=== PATIENT | male | born 1965 | race Hispanic/Latino ===

== ENCOUNTER 2019-10-23 22:09 | Emergency (ER) | payer OTHER ==
--- NOTE | 2019-10-23 22:55 | ER ---
Nurse's Notes [facility] Name: Fernandez Rich Age: 54 yrs Sex: Male : 1965 Arrival Date: 10/23/2019 Time: 22:15 Bed 23 Private MD: Diagnosis: Herpes genetalia Presentation: 10/23 22:23 Presenting complaint: Patient states: i have genital pain for a week now, i was seen mg2 twice by different drs and the last one prescribed me with fluconazole i took one dose of it and my pain is unbearable. Transition of care: patient was not received from another setting of care. Onset of symptoms was September 2019. Risk Assessment: Do you want to hurt yourself or someone else? Patient reports no desire to harm self or others. Initial Sepsis Screen: Does the patient meet any 2 criteria? No. Patient's initial sepsis screen is negative. Does the patient have a suspected source of infection? No. Patient's initial sepsis screen is negative. Care prior to arrival: None. 22:23 Method Of Arrival: Ambulatory mg2 22:23 Acuity: JASMIN 4 mg2 Historical: - Allergies: 22:27 No Known Allergies; mg2 - Home Meds: 22:27 None [Active]; mg2 - PMHx: 22:27 Hyperlipidemia; mg2 - PSHx: 22:27 None; mg2 - Immunization history:: Flu vaccine is up to date. - Coronavirus screen:: The patient has NOT traveled to [place], [place], or [place] in the past 14 days. Proceed with normal triage process as indicated. The patient has NOT had contact with known/suspected case of Coronavirus? Proceed with normal triage procedures. - Social history:: Smoking status: Patient denies any tobacco usage or history of. Patient/guardian denies using alcohol, street drugs, IV drugs. - Ebola Screening: : No symptoms or risks identified at this time. Screenin:32 Abuse screen: Denies threats or abuse. Denies injuries from another. Nutritional mg2 screening: No deficits noted. Tuberculosis screening: No symptoms or risk factors identified. Fall Risk None identified. Assessment: 22:32 General: Appears in no apparent distress. comfortable, Behavior is calm, cooperative. mg2 Pain: Complains of pain in genital. Neuro: Level of Consciousness is awake, alert, obeys commands, Oriented to person, place, time, situation. Cardiovascular: Capillary refill < 3 seconds Patient's skin is warm and dry. Respiratory: Airway is patent. GI: No signs and/or symptoms were reported involving the gastrointestinal system. : Reports pain genitalia. EENT: No signs and/or symptoms were reported regarding the EENT system. Derm: Skin is intact, is healthy with good turgor, Skin is pink, warm \T\ dry. normal. Musculoskeletal: Circulation, motion, and sensation intact. Capillary refill < 3 seconds. Vital Signs: 22:19 BP 146 / 92; Pulse 57; Resp 16; Temp 97.8(O); Pulse Ox 98% ; lt1 22:34 Weight 79.83 kg; Height 5 ft. 10 in. (177.80 cm); mg2 22:34 Body Mass Index 25.25 (79.83 kg, 177.80 cm) mg2 ED Course: 22:15 Patient arrived in ED. es 22:16 Nestor Partida MD is Attending Physician. lance 22:22 Harpreet Moreira, ASHLIE is Primary Nurse. mg2 22:25 Triage completed. mg2 22:25 Arm band placed on. mg2 22:33 No provider procedures requiring assistance completed. Patient did not have IV access mg2 during this emergency room visit. 22:34 Patient has correct armband on for positive identification. Placed in gown. Pulse ox mg2 on. NIBP on. Door closed. Warm blanket given. Administered Medications: 22:56 Drug: Tylenol #3 (300 mg-30 mg) 1 tablet Route: PO; mg2 22:57 Follow up: Response: No adverse reaction; Medication administered at discharge. mg2 22:56 Drug: Acyclovir 800 mg Route: PO; mg2 22:57 Follow up: Response: No adverse reaction; Medication administered at discharge. mg2 Outcome: 22:54 Discharge ordered by . pkvesta 23:08 Discharged to home ambulatory, with family. mg2 23:08 Condition: stable 23:08 Discharge instructions given to patient, family, Instructed on discharge instructions, follow up and referral plans. medication usage, Demonstrated understanding of instructions, follow-up care, medications, Prescriptions given X 2. 23:09 Patient left the ED. mg2 Signatures: Nestor Partida MD MD pkLizz Issa Harpreet Moreira RN RN mg2 [place] [id number]
[2019-10-23] MEDS ORDERED: ACYCLOVIR 400 MG TABLET ONE (22:56)
--- NOTE | 2019-10-23 22:56 | EDPHYS ---
Physician Documentation [facility] Name: Fernandez Rich Age: 54 yrs Sex: Male : 1965 Arrival Date: 10/23/2019 Time: 22:15 Bed 23 Private MD: ED Physician Nestor Partida HPI: 10/23 22:48 This 54 yrs old Male presents to ER via Ambulatory with complaints of Groin pkl Pain. 22:48 The patient presents with Blister-like lesions and ulcers on prepuce. Onset: The pkl symptoms/episode began/occurred 3 day(s) ago. Historical: - Allergies: 22:27 No Known Allergies; mg2 - Home Meds: 22:27 None [Active]; mg2 - PMHx: 22:27 Hyperlipidemia; mg2 - PSHx: 22:27 None; mg2 - Immunization history:: Flu vaccine is up to date. - Coronavirus screen:: The patient has NOT traveled to [place], [place], or [place] in the past 14 days. Proceed with normal triage process as indicated. The patient has NOT had contact with known/suspected case of Coronavirus? Proceed with normal triage procedures. - Social history:: Smoking status: Patient denies any tobacco usage or history of. Patient/guardian denies using alcohol, street drugs, IV drugs. - Ebola Screening: : No symptoms or risks identified at this time. ROS: 22:48 Eyes: Negative for injury, pain, redness, and discharge, ENT: Negative for injury, pkl pain, and discharge, Neck: Negative for injury, pain, and swelling, Cardiovascular: Negative for chest pain, palpitations, and edema, Respiratory: Negative for shortness of breath, cough, wheezing, and pleuritic chest pain, Abdomen/GI: Negative for abdominal pain, nausea, vomiting, diarrhea, and constipation, Back: Negative for injury and pain. 22:48 : Positive for Blister-like lesions and ulcers on prepuce. 22:48 MS/extremity: Negative for acute changes. 22:48 Neuro: Negative for altered mental status. Exam: 22:48 Head/Face: Normocephalic, atraumatic. Eyes: Pupils equal round and reactive to light, pkl extra-ocular motions intact. Lids and lashes normal. Conjunctiva and sclera are non-icteric and not injected. Cornea within normal limits. Periorbital areas with no swelling, redness, or edema. ENT: Nares patent. No nasal discharge, no septal abnormalities noted. Tympanic membranes are normal and external auditory canals are clear. Oropharynx with no redness, swelling, or masses, exudates, or evidence of obstruction, uvula midline. Mucous membranes moist. Neck: Trachea midline, no thyromegaly or masses palpated, and no cervical lymphadenopathy. Supple, full range of motion without nuchal rigidity, or vertebral point tenderness. No Meningismus. Chest/axilla: Normal chest wall appearance and motion. Nontender with no deformity. No lesions are appreciated. Cardiovascular: Regular rate and rhythm with a normal S1 and S2. No gallops, murmurs, or rubs. Normal PMI, no JVD. No pulse deficits. Respiratory: Lungs have equal breath sounds bilaterally, clear to auscultation and percussion. No rales, rhonchi or wheezes noted. No increased work of breathing, no retractions or nasal flaring. Abdomen/GI: Soft, non-tender, with normal bowel sounds. No distension or tympany. No guarding or rebound. No evidence of tenderness throughout. Back: No spinal tenderness. No costovertebral tenderness. Full range of motion. 22:48 : Male external genitalia: blister-like lesions and ulcers on prepuce. 22:48 Musculoskeletal/extremity: Exam is negative for acute changes. 22:48 Neuro: Orientation: is normal, Mentation: is normal, Cranial nerves: grossly normal, Motor: is normal. Vital Signs: 22:19 BP 146 / 92; Pulse 57; Resp 16; Temp 97.8(O); Pulse Ox 98% ; lt1 22:34 Weight 79.83 kg; Height 5 ft. 10 in. (177.80 cm); mg2 22:34 Body Mass Index 25.25 (79.83 kg, 177.80 cm) mg2 MDM: 22:16 Patient medically screened. pkl 22:54 Data reviewed: vital signs, nurses notes. pkl Administered Medications: 22:56 Drug: Tylenol #3 (300 mg-30 mg) 1 tablet Route: PO; mg2 22:57 Follow up: Response: No adverse reaction; Medication administered at discharge. mg2 22:56 Drug: Acyclovir 800 mg Route: PO; mg2 22:57 Follow up: Response: No adverse reaction; Medication administered at discharge. mg2 Disposition: 10/23/19 22:54 Discharged to Home. Impression: Herpes genetalia. - Condition is Stable. - Prescriptions for Tylenol- Codeine #3 300-30 mg Oral Tablet - take 1 tablet by ORAL route every 8 hours As needed; 12 tablet. Acyclovir 800 mg Oral Tablet - take 1 tablet by ORAL route 3 times per day for 10 days; 30 tablet. - Medication Reconciliation Form, Thank You Letter, Antibiotic Education, Prescription Opioid Use form. - Follow up: Private Physician; When: 2 - 3 days; Reason: Re-evaluation by your physician. - Problem is new. - Symptoms are unchanged. Signatures: Nestor Partida MD MD pkl Harpreet Moreira RN RN mg2 Corrections: (The following items were deleted from the chart) 23:09 22:54 10/23/2019 22:54 Discharged to Home. Impression: Herpes genetalia. Condition is mg2 Stable. Forms are Medication Reconciliation Form, Thank You Letter, Antibiotic Education, Prescription Opioid Use. Follow up: Private Physician; When: 2 - 3 days; Reason: Re-evaluation by your physician. Problem is new. Symptoms are unchanged. pkl
[2019-10-23] MEDS ORDERED: CODEINE 30MG/APAP 300MG TAB ONE (22:57)
[2019-10-23 23:18] VITALS: BP 146/92; TEMP 97.8; O2SAT 98
== END 2019-10-23 23:09 | disposition home or self-care (01) ==
LOC: ER 22:09
DX: A60.00 Herpesviral infection of urogenital system, unspecified (principal)
CPT/HCPCS: 99283